=== PATIENT | male | born 1995 | race Caucasian/White ===

== ENCOUNTER 2024-08-08 00:45 | Emergency (ER) | payer BC | END 2024-08-08 03:11 | disposition left against medical advice (07) | LOC: MW.ED 00:45 | DX: R55 Syncope and collapse (principal); F17.210 Nicotine dependence, cigarettes, uncomplicated; Z79.899 Other long term (current) drug therapy; Z88.1 Allergy status to other antibiotic agents; Z91.041 Radiographic dye allergy status; Z75.8 Other problems related to medical facilities and other health care | CPT/HCPCS: 82947; 93005; 93010; 99284 ==